=== PATIENT | female | born 1970 | race African-American/Black ===

== ENCOUNTER 2017-08-04 07:56 | Inpatient (IN) | payer MEDICAID ==
--- NOTE | 2017-08-04 09:00 | ER Document Report ---
ED General - General Mode of Arrival: Medic Information source: Patient TRAVEL OUTSIDE OF THE [place] IN LAST 30 DAYS: No <VIDYA WHIPPLE - Last Filed: 08/04/17 09:20> <FAWN AVERY - Last Filed: 08/04/17 16:09> - General Chief Complaint: Upper Abdominal Pain Stated Complaint: ABDOMINAL PAIN Time Seen by Provider: 08/04/17 08:51 Notes: 46 y.o female presents to the ED with abd pain of onset Thursday evening around 0700. She reports that she went to work at 7am and when she came home around 2pm she went to sleep and when she woke up she was in pain in her right sided abd and a pain in her legs which has now became a diffuse pain in her abd, more prominently in her bilateral lower abdomen. Pt admits to occasional episodes of nausea and vomiting since the onset of her abd pain. Pt reports last menstrual period July 13 and reports some pink vaginal discharge recently when wiping after using the restroom. Pt denies being but admits there is a chance of . Pt denies any BMs since onset of sx. Pt denies any PSHx, EMS reports pt hx of kidney stones. (VIDYA WHIPPLE) Patient reports her abdominal pain started Thursday evening 08/02/2017 about 7 PM. She had laid down for a nap about 2 PM that afternoon after getting home from work and the pain woke her up about 7 PM. The pain would come and go since then. Her last bowel movement was on Thursday prior to the onset of pain. (FAWN AVERY) - Related Data Allergies/Adverse Reactions: metronidazole [From Flagyl] Allergy (Verified 08/04/17 08:26) Metronidazole HCl [From Flagyl] Allergy (Verified 08/04/17 08:26) Past Medical History - General Information source: Patient - Social History Smoking Status: Current Every Day Smoker Cigarette use (# per day): Yes - 10 per day Chew tobacco use (# tins/day): No Smoking Education Provided: Yes Frequency of alcohol use: None Drug Abuse: None Occupation: [employer] Family History: Reviewed & Not Pertinent - Immunizations Hx Diphtheria, Pertussis, Tetanus Vaccination: Yes <VIDYA WHIPPLE - Last Filed: 08/04/17 09:20> Review of Systems - Review of Systems Constitutional: No symptoms reported EENT: No symptoms reported. denies: Eye discharge Cardiovascular: No symptoms reported Respiratory: No symptoms reported Gastrointestinal: See HPI, Abdominal pain, Nausea, Vomiting Genitourinary: No symptoms reported Female Genitourinary: See HPI, Vaginal discharge. denies: Musculoskeletal: See HPI, Other - pain in legs with the onset of abd pain Skin: No symptoms reported Hematologic/Lymphatic: No symptoms reported Neurological/Psychological: No symptoms reported -: Yes All other systems reviewed and negative <VIDYA WIHPPLE - Last Filed: 08/04/17 09:20> Physical Exam <VIDYA WHIPPLE - Last Filed: 08/04/17 09:20> <FAWN AVERY - Last Filed: 08/04/17 16:09> - Vital signs Vitals: Temp Pulse Resp BP Pulse Ox 97.7 F 70 18 165/101 H 100 08/04/17 08:01 08/04/17 08:01 08/04/17 08:01 08/04/17 08:01 08/04/17 08:01 - Notes Notes: Physical Exam: General: Alert, appears well. HEENT: Normocephalic. Atraumatic. PERRL. Extraocular movements intact. Oropharynx clear. Neck: Supple. Non-tender. Respiratory: No respiratory distress. Clear and equal breath sounds bilaterally. Cardiovascular: Regular rate and rhythm. Abdominal: Morbidly obese. Tender in RUQ and very tender in bilateral lower quadrants. Soft, no distension. Normal Bowel Sounds. Back: Non-tender. No deformity or step off. Extremities: Moves all four extremities. Upper extremities: Normal inspection. Normal ROM. Lower extremities: Normal inspection. No edema. Normal ROM. Neurological: Normal cognition. AAOx3. Normal speech. (VIDYA WHIPPLE) Course - Laboratory Result Diagrams: 08/04/17 10:10 08/04/17 10:10 - Diagnostic Test Radiology reviewed: Reports reviewed - Ultrasound shows gallstones. Trace pericholecystic fluid. No gallbladder wall thickening. - Consults Dr. Gann Time consulted: 14:50 Consulted provider: will come to ER <FAWN AVERY - Last Filed: 08/04/17 16:09> - Vital Signs Vital signs: Temp Pulse Resp BP Pulse Ox 98.5 F 62 16 164/95 H 100 08/04/17 12:31 08/04/17 12:31 08/04/17 12:31 08/04/17 12:31 08/04/17 12:31 - Laboratory Laboratory results interpreted by me: 08/04/17 08/04/17 08/04/17 08:30 10:10 10:10 WBC 23.9 H RDW 16.4 H Seg Neuts % (Manual) 91 H Lymphocytes % (Manual) 1 L Abs Neuts (Manual) 21.7 H Abs Lymphs (Manual) 0.2 L Abs Monocytes (Manual) 1.9 H Carbon Dioxide 31 H AST 43 H Total Protein 8.6 H Lipase 587.0 H Urine Protein 100 H Urine Glucose (UA) 50 H Urine Ketones 20 H Urine Bilirubin SMALL H Urine Urobilinogen 2.0 H Discharge <VIDYA WHIPPLE - Last Filed: 08/04/17 09:20> - Discharge Admitting Provider: Surgicalist Unit Admitted: Surgical Floor <FAWN AVERY - Last Filed: 08/04/17 16:09> - Discharge Clinical Impression: Gallstones, Pyuria Abdominal pain Qualifiers: Abdominal location: generalized Qualified Code(s): R10.84 - Generalized abdominal pain Leukocytosis Qualifiers: Leukocytosis type: unspecified Qualified Code(s): D72.829 - Elevated white blood cell count, unspecified Condition: Stable Disposition: ADMITTED INPATIENT Scribe Attestation: 08/04/17 10:52 I personally performed the services described in the documentation, reviewed and edited the documentation which was dictated to the scribe in my presence, and it accurately records my words and actions. (FAWN AVERY) Scribe Documentation - Scribe Written by Julieta:: Julieta Cervantes [id number] 08/04/17 acting as scribe for :: Irina <VIDYA WHIPPLE - Last Filed: 08/04/17 09:20>
[2017-08-04] MEDS ORDERED: NORMAL SALINE 1000 ML 1,000 ML IV ONE (09:20)
[2017-08-04] MEDS ORDERED: ONDANSETRON HCL INJ/PF 4 MG/2 ML SDV IV ONE (09:20)
[2017-08-04] MEDS ORDERED: FAMOTIDINE INJ/PF 20 MG/2 ML SDV IV ONE (09:20)
[2017-08-04 09:52] LABS: AMORPHOUS SEDIMENT,URINE 1+ /HPF; APPEARANCE,URINE TURBID; BILIRUBIN,URINE SMALL (NEGATIVE); GLUCOSE, URINE 50 mg/dL (NEGATIVE); KETONES,URINE 20 mg/dL (NEGATIVE); LEUKOCYTE ESTERASE,URINE NEGATIVE (NEGATIVE); NITRITE,URINE NEGATIVE (NEGATIVE); PROTEIN,URINE 100 mg/dL (NEGATIVE); URINE SPECIFIC GRAVITY 1.032
[2017-08-04 09:53] LABS: COLOR,URINE YELLOW
[2017-08-04 10:41] LABS: HEMATOCRIT 38.5 % (36.0-47.0); HEMOGLOBIN 12.8 g/dL (12.0-15.5); MEAN CORPUSCULAR HEMOGLOBIN 29.9 pg (27.0-33.4); MEAN CORPUSCULAR HGB CONC 33.2 g/dL (32.0-36.0); MEAN CORPUSCULAR VOLUME 90 fl (80-97); PLATELET COUNT 437 10^3/uL (150-450); RED BLOOD COUNT 4.27 10^6/uL (3.72-5.28); RED CELL DISTRIBUTION WIDTH 16.4 % (11.5-14.0); WHITE BLOOD COUNT 23.9 10^3/uL (4.0-10.5)
[2017-08-04 10:49] LABS: ALANINE AMINOTRANSFERASE 16 U/L (9-52); ALBUMIN 4.5 g/dL (3.5-5.0); ALKALINE PHOSPHATASE 67 U/L (38-126); ANION GAP 11 (5-19); ASPARTATE AMINO TRANSFERASE 43 U/L (14-36); BILIRUBIN,DIRECT 0.4 mg/dL (0.0-0.4); BILIRUBIN,TOTAL 0.8 mg/dL (0.2-1.3); BLOOD UREA NITROGEN 9 mg/dL (7-20); CARBON DIOXIDE 31 mmol/L (22-30); CHLORIDE 102 mmol/L (98-107); GLUCOSE 107 mg/dL (75-110); POTASSIUM 3.7 mmol/L (3.6-5.0); SODIUM 143.9 mmol/L (137-145); TOTAL PROTEIN 8.6 g/dL (6.3-8.2)
[2017-08-04] MEDS ORDERED: FENTANYL CITRATE INJ/PF 100 MCG/2 ML AMPUL IV ONE (10:52)
[2017-08-04 11:15] LABS: ABSOLUTE LYMPHOCYTES# (MANUAL) 0.2 10^3/uL (0.5-4.7); ABSOLUTE MONOCYTES # (MANUAL) 1.9 10^3/uL (0.1-1.4); ABSOLUTE NEUTROPHILS# (MANUAL) 21.7 10^3/uL (1.7-8.2); BASOPHILS % (MANUAL) 0 % (0-2); EOSINOPHILS % (MANUAL) 0 % (0-6); LYMPHOCYTES % (MANUAL) 1 % (13-45); MONOCYTES % (MANUAL) 8 % (3-13); SEGMENTED NEUTROPHILS % (MAN) 91 % (42-78); TOTAL CELLS COUNTED 100
[2017-08-04 11:16] LABS: ANISOCYTOSIS 1+; PLATELET COMMENT ADEQUATE; POIKILOCYTOSIS 1+; STOMATOCYTES 1+; TEAR DROP CELLS SLIGHT
[2017-08-04 11:43] LABS: CHLAM PCR NOT DETECTED (NOT DETECT); GON PCR NOT DETECTED (NOT DETECT)
--- NOTE | 2017-08-04 12:37 | RADIOLOGY REPORT (SQ) ---
EXAM DESCRIPTION: U/S ABDOMEN LIMITED W/O DOP COMPLETED DATE/TIME: 08/04/2017 12:02 pm REASON FOR STUDY: RUQ-for gastric pain with elevated lipase COMPARISON: CT abdomen and pelvis 01/25/2015. TECHNIQUE: Dynamic and static grayscale images acquired of the abdomen and recorded on PACS. Additio nal selected color Doppler and spectral images recorded. LIMITATIONS: None. FINDINGS: PANCREAS: No masses. Visualized pancreatic duct normal caliber. LIVER: No masses. Echotexture normal. LIVER VASCULATURE: Normal directional flow of the main portal vein and hepatic veins. GALLBLADDER: Gallstone(s). Trace pericholecystic fluid. No wall thickening. ULTRASOUND-DETECTED RIDER'S SIGN: Negative. INTRAHEPATIC DUCTS AND COMMON DUCT: CBD and intrahepatic ducts normal caliber. No filling defects. INFERIOR VENA CAVA: Normal flow. AORTA: No aneurysm. RIGHT KIDNEY: Normal size. Normal echogenicity. No solid or suspicious masses. No hydronephrosis. No calcifications. PERITONEAL AND RIGHT PLEURAL SPACE: No ascites or effusions. OTHER: Heterogenous mass in the lower abdomen/pelvis anterior to the distal abdominal aorta, incomple tely visualized. IMPRESSION: 1. GALLSTONES. TRACE PERICHOLECYSTIC FLUID. NO OTHER SIGNIFICANT FINDINGS IN THE UPPER ABDOMEN. 2. HETEROGENOUS MASS IN THE LOWER ABDOMEN/PELVIS, INCOMPLETELY VISUALIZED. THIS MAY BE AN ENLARGED F IBROID UTERUS. MAY CONSIDER FOLLOW-UP CT FOR MORE COMPLETE EVALUATION. TECHNICAL DOCUMENTATION: JOB ID: [id number] [employer]- All Rights Reserved Reading location - IP/workstation name: [email or web address]
[2017-08-04] MEDS ORDERED: PIPERACILLIN/TAZOBACTAM 4.5 GM VIAL IV ONE (13:49)
[2017-08-04] MEDS ORDERED: ONDANSETRON HCL INJ/PF 4 MG/2 ML SDV IV PRN (16:16)
[2017-08-04] MEDS ORDERED: RINGERS SOLUTION,LACTATED 1,000 ML IV ONE (17:06)
--- NOTE | 2017-08-04 18:53 | PDOC H&P ---
History of Present Illness Admission Date/PCP: 08/04/17 16:11 Patient complains of: Suprapubic, lower abdominal pain History of Present Illness: MARIANNA COPELAND is a 46 year old female with a 3 day history of suprapubic, right lower quadrant, and left lower quadrant abdominal pain. Her pain began on 08/02/2017. The pain was crampy in nature and extended from her suprapubic area into her right lower quadrant and left lower quadrant. She began experiencing nausea and vomiting. She has not had any significant food or drink in 3 days. She has never experienced anything like this before. Her pain intensified significantly, and she presented to the emergency department for evaluation. Patient denies any melena, hematochezia, diarrhea, constipation , chest pain, or shortness of breath. She does report nausea, vomiting, and pain. Nothing makes her pain better. Palpation makes her pain worse. Past Medical History Renal/ History Note: Uterine fibroids Past Surgical History Past Surgical History: Reports: None Social History Smoking Status: Current Every Day Smoker Frequency of Alcohol Use: Occasional - 2-3 times per month Hx Recreational Drug Use: No Family History Family History: Reviewed & Not Pertinent Parental Family History Reviewed: Yes Children Family History Reviewed: Yes Sibling(s) Family History Reviewed.: Yes Medication/Allergy Home Medications: No Home Medications 08/04/17 Allergies/Adverse Reactions: metronidazole [From Flagyl] Allergy (Verified 08/04/17 08:26) Metronidazole HCl [From Flagyl] Allergy (Verified 08/04/17 08:26) Review of Systems Constitutional: PRESENT: fatigue, weakness Eyes: ABSENT: visual disturbances Ears: ABSENT: hearing changes Nose, Mouth, and Throat: ABSENT: mouth pain, sore throat Cardiovascular: PRESENT: palpitations. ABSENT: edema Respiratory: ABSENT: cough, dyspnea, hemoptysis Gastrointestinal: PRESENT: abdominal pain, nausea, vomiting. ABSENT: hematemesis, hematochezia, melena Genitourinary: ABSENT: dysuria Musculoskeletal: ABSENT: back pain Integumentary: ABSENT: pruritus, rash Neurological: ABSENT: abnormal movements, abnormal speech, confusion, memory loss Psychiatric: ABSENT: anxiety, depression, hallucinations Endocrine: ABSENT: cold intolerance, heat intolerance Hematologic/Lymphatic: ABSENT: easy bleeding, easy bruising Physical Exam Vital Signs: Temp Pulse Resp BP Pulse Ox 98.3 F 64 16 172/91 H 98 08/04/17 17:49 08/04/17 17:49 08/04/17 17:49 08/04/17 17:49 08/04/17 17:49 General appearance: PRESENT: mild distress - Abdominal pain, obese Head exam: PRESENT: atraumatic, normocephalic Eye exam: PRESENT: EOMI, PERRLA. ABSENT: scleral icterus Mouth exam: PRESENT: moist, neck supple Neck exam: ABSENT: lymphadenopathy, meningismus, tenderness, thyromegaly, tracheal deviation Respiratory exam: PRESENT: clear to auscultation bill, unlabored. ABSENT: chest wall tenderness, rales, retraction, rhonchi, stridor, tachypnea Cardiovascular exam: PRESENT: RRR Pulses: PRESENT: normal radial pulses Vascular exam: PRESENT: normal capillary refill. ABSENT: pallor GI/Abdominal exam: PRESENT: soft, tenderness - Right lower quadrant, suprapubic , left lower quadrant. ABSENT: distended, firm, guarding, hernia, rebound Rectal exam: PRESENT: deferred Extremities exam: ABSENT: clubbing Musculoskeletal exam: PRESENT: normal inspection. ABSENT: deformity, dislocation Neurological exam: PRESENT: alert, awake, oriented to person, oriented to place , oriented to time, oriented to situation, CN II-XII grossly intact. ABSENT: motor sensory deficit Psychiatric exam: ABSENT: agitated, anxious, depressed Skin exam: ABSENT: cyanosis, erythema, jaundice, pallor Results Impressions: Abdomen Ultrasound 08/04/17 10:51 IMPRESSION: 1. GALLSTONES. TRACE PERICHOLECYSTIC FLUID. NO OTHER SIGNIFICANT FINDINGS IN THE UPPER ABDOMEN. 2. HETEROGENOUS MASS IN THE LOWER ABDOMEN/PELVIS, INCOMPLETELY VISUALIZED. THIS MAY BE AN ENLARGED FIBROID UTERUS. MAY CONSIDER FOLLOW-UP CT FOR MORE COMPLETE EVALUATION. Assessment & Plan - Diagnosis (1) Abdominal pain Qualifiers: Abdominal location: lower abdomen, unspecified Qualified Code(s): R10.30 - Lower abdominal pain, unspecified Is this a current diagnosis for this admission?: Yes - Inpatient Certification Based on my medical assessment, after consideration of the patient's comorbidities, presenting symptoms, or acuity I expect that the services needed warrant INPATIENT care.: Yes I certify that my determination is in accordance with my understanding of Medicare's requirements for reasonable and necessary INPATIENT services [42 CFR 412.3e].: Yes - Plan Summary Plan Summary: This is a 46-year-old female with lower abdominal pain. She has a significant leukocytosis, as well as semaj-cholecystic fluid on ultrasound, and an elevated lipase. On exam, the patient is tender in her right lower quadrant, left lower quadrant, and suprapubic area. Currently her symptoms are not completely explained by gallstone pancreatitis. I will admit the patient to the hospital, begin antibiotics for possible diverticulitis, and obtain a CT scan of the abdomen and pelvis. Currently the patient does not exhibit signs of peritonitis. Further recommendations will be determined after testing is obtained.
[2017-08-04] MEDS: HYDROMORPHONE HCL INJ/PF 2 MG/ML AMPULE IV PRN (20:54)
[2017-08-04 20:57] LABS: HEMATOCRIT 33.2 % (36.0-47.0); HEMOGLOBIN 10.9 g/dL (12.0-15.5); MEAN CORPUSCULAR HEMOGLOBIN 29.5 pg (27.0-33.4); MEAN CORPUSCULAR HGB CONC 32.9 g/dL (32.0-36.0); MEAN CORPUSCULAR VOLUME 90 fl (80-97); PLATELET COUNT 335 10^3/uL (150-450); RED CELL DISTRIBUTION WIDTH 16.4 % (11.5-14.0); WHITE BLOOD COUNT 20.8 10^3/uL (4.0-10.5)
[2017-08-04 21:13] LABS: ALANINE AMINOTRANSFERASE 19 U/L (9-52); ALBUMIN 3.7 g/dL (3.5-5.0); ALKALINE PHOSPHATASE 51 U/L (38-126); ANION GAP 10 (5-19); ASPARTATE AMINO TRANSFERASE 19 U/L (14-36); BILIRUBIN,DIRECT 0.3 mg/dL (0.0-0.4); BILIRUBIN,TOTAL 0.7 mg/dL (0.2-1.3); BLOOD UREA NITROGEN 8 mg/dL (7-20); CALCIUM 9.6 mg/dL (8.4-10.2); CARBON DIOXIDE 29 mmol/L (22-30); CHLORIDE 103 mmol/L (98-107); GLUCOSE 96 mg/dL (75-110); POTASSIUM 3.7 mmol/L (3.6-5.0); SODIUM 142.4 mmol/L (137-145); TOTAL PROTEIN 7.1 g/dL (6.3-8.2)
[2017-08-04 21:19] LABS: ABSOLUTE MONOCYTES # (MANUAL) 0.2 10^3/uL (0.1-1.4); ABSOLUTE NEUTROPHILS# (MANUAL) 19.3 10^3/uL (1.7-8.2); BASOPHILS % (MANUAL) 1 % (0-2); EOSINOPHILS % (MANUAL) 0 % (0-6); HYPOCHROMASIA 1+; LYMPHOCYTES % (MANUAL) 5 % (13-45); MONOCYTES % (MANUAL) 1 % (3-13); PLATELET COMMENT ADEQUATE; SEGMENTED NEUTROPHILS % (MAN) 93 % (42-78); TOTAL CELLS COUNTED 100; TOXIC GRANULATION SLIGHT
[2017-08-04] MEDS: PIPERACILLIN SODIUM/TAZOBACTAM 3.375 GM in NORMAL SALINE 100 ML IV SCH (23:45)
--- NOTE | 2017-08-05 01:09 | RADIOLOGY REPORT (SQ) ---
EXAM DESCRIPTION: CT abdomen pelvis with contrast CLINICAL HISTORY: 46 years Female lower abdominal pain and leukocytosis COMPARISON: 01/25/2015, ultrasound 08/04/2018 TECHNIQUE: Contiguous axial images obtained through the abdomen and pelvis following IV contrast. Reformatted images obtained. This exam was performed according to our department optimization program which includes automated exposure control, adjustment of the mA and/or kv according to patient size and/or use of iterative reconstruction technique. FINDINGS: There is a small lymph node along the superior aspect of the hemidiaphragm on the right which is larger than on previous studies, measuring 7 mm. There is fatty infiltration of the liver. The spleen and pancreas appear unremarkable. No adrenal masses. The kidneys appear unremarkable. No hydronephrosis. The gallbladder is visualized. No aneurysmal dilatation of the aorta. No bowel obstruction. The appendix is unremarkable. There is a small amount of fluid in the right lower quadrant the pelvis. There is a multilobulated exophytic mass in the central aspect of the pelvis. This may represent a pedunculated fibroid but the possibility of ovarian mass should be excluded. The left ovary appears unremarkable. IMPRESSION: Complex multi lobulated mass in the central pelvis slightly to the right of the midline measuring 11.5 x 9 cm x 14 cm vertically. Findings may reflect ovarian neoplasm such as cystadenoma or cystadenocarcinoma. Large pedunculated uterine fibroid is not excluded. Recommend correlation with MRI Small amount of fluid in the pelvis and right lower quadrant
[2017-08-05] MEDS: HYDROMORPHONE HCL INJ/PF 2 MG/ML AMPULE IV PRN ×4 (04:17→23:43)
[2017-08-05] MEDS: PIPERACILLIN SODIUM/TAZOBACTAM 3.375 GM in NORMAL SALINE 100 ML IV SCH ×4 (06:11→23:44)
[2017-08-05] MEDS: RINGERS SOLUTION,LACTATED 1,000 ML IV PRN ×2 (06:12→17:57)
[2017-08-05 06:56] LABS: ABSOLUTE BASOPHILS # (AUTO) 0.1 10^3/uL (0.0-0.2); ABSOLUTE LYMPHOCYTES (AUTO) 1.1 10^3/uL (0.5-4.7); ABSOLUTE MONOCYTES (AUTO) 1.4 10^3/uL (0.1-1.4); ABSOLUTE NEUT (AUTO) 14.7 10^3/uL (1.7-8.2); BASOPHILS % (AUTO) 0.7 % (0-2); EOSINOPHILS % (AUTO) 0.2 % (0-6); HEMATOCRIT 31.2 % (36.0-47.0); HEMOGLOBIN 10.4 g/dL (12.0-15.5); LYMPHOCYTES % (AUTO) 6.2 % (13-45); MEAN CORPUSCULAR HEMOGLOBIN 29.8 pg (27.0-33.4); MEAN CORPUSCULAR HGB CONC 33.3 g/dL (32.0-36.0); MEAN CORPUSCULAR VOLUME 89 fl (80-97); MONOCYTES % (AUTO) 8.1 % (3-13); PLATELET COUNT 300 10^3/uL (150-450); RED BLOOD COUNT 3.49 10^6/uL (3.72-5.28); RED CELL DISTRIBUTION WIDTH 16.2 % (11.5-14.0); SEGMENTED NEUTROPHILS % (AUTO) 84.8 % (42-78); TOTAL CELLS COUNTED % (AUTO) 100 %; WHITE BLOOD COUNT 17.4 10^3/uL (4.0-10.5)
[2017-08-05 07:14] LABS: ALANINE AMINOTRANSFERASE 17 U/L (9-52); ALBUMIN 3.3 g/dL (3.5-5.0); ALKALINE PHOSPHATASE 48 U/L (38-126); AMYLASE 37 U/L (30-110); ANION GAP 10 (5-19); ASPARTATE AMINO TRANSFERASE 15 U/L (14-36); BILIRUBIN,DIRECT 0.3 mg/dL (0.0-0.4); BILIRUBIN,TOTAL 0.6 mg/dL (0.2-1.3); BLOOD UREA NITROGEN 7 mg/dL (7-20); CALCIUM 9.2 mg/dL (8.4-10.2); CARBON DIOXIDE 28 mmol/L (22-30); CHLORIDE 104 mmol/L (98-107); GLUCOSE 84 mg/dL (75-110); LIPASE 45.3 U/L (23-300); POTASSIUM 3.6 mmol/L (3.6-5.0); SODIUM 141.7 mmol/L (137-145); TOTAL PROTEIN 6.4 g/dL (6.3-8.2)
--- NOTE | 2017-08-05 12:25 | CONSULTATION REPORT E ---
Consultation Report NAME: MARIANNA COPELAND : 1970 AGE: 46Y DATE: 08/05/2017 ROOM: 208 A TO: Rosie SAUNDERS M.D. FROM: FAWN AVERY M.D. Requesting Physician HISTORY OF PRESENT ILLNESS: This patient is a 46-year-old 1, para 1 with last menstrual period approximately 2 months ago. The patient gives a history of having irregular periods for the last couple of months. Prior to that time, she reported them as being normal. The patient denies any other problems, was admitted with lower abdominal pain. She was noted to have a pelvic mass on ultrasound and it was questionable whether it was uterine or ovarian in origin. The patient denies any other problems. PHYSICAL EXAMINATION: ABDOMEN: Her abdomen is soft. PELVIC: The bimanual exam shows her cervix to be extremely anterior. A Pap smear was done on her bimanual exam. This appears to be a large fibroid filling the cul-de-sac and extending up into the abdomen. No apparent adnexal masses could be palpated secondary to the size of the uterus. IMPRESSION: The patient's large uterine mass, most consistent with uterine fibroids. RECOMMENDATIONS: The patient was notified of the findings and also told that further diagnostic tests would be warranted to delineate between ovary and uterus. If it is a uterine mass and if she desires, then surgical intervention could be entertained. If it is an ovarian mass, then we may need to refer her to [facility] for further evaluation. DICTATING PHYSICIAN: Rosie SAUNDERS M.D. [id number] PHY#: [id number] ID: [id number] JOB#: [id number] ACCT: [id number] cc:Rosie SAUNDERS M.D. >
--- NOTE | 2017-08-05 16:40 | PDOC PROGRESS REPORT ---
Subjective Progress Note for:: 08/05/17 Subjective:: pelvic pains Reason For Visit: ABDOMINAL PAIN,LEUKOCYTOSIS Physical Exam Vital Signs: Temp Pulse Resp BP Pulse Ox 98.1 F 67 16 117/55 L 99 08/05/17 15:43 08/05/17 15:43 08/05/17 15:43 08/05/17 15:43 08/05/17 15:43 Intake & Output 08/04/17 08/05/17 08/06/17 06:59 06:59 06:59 Intake Total 1620 250 Output Total 750 Balance 870 250 Weight 108.862 kg Exam: Abd drawing frame tender Right Lower quadrant and supra pubic areas Results Laboratory Results: 08/05/17 06:19 08/05/17 06:19 08/04/17 08/04/17 08/05/17 20:40 20:40 06:19 WBC 20.8 H 17.4 H RBC 3.70 L 3.49 L Hgb 10.9 L 10.4 L Hct 33.2 L 31.2 L MCV 90 89 MCH 29.5 29.8 MCHC 32.9 33.3 RDW 16.4 H 16.2 H Plt Count 335 300 Seg Neutrophils % Not Reportable 84.8 H Lymphocytes % Not Reportable 6.2 L Monocytes % Not Reportable 8.1 Eosinophils % Not Reportable 0.2 Basophils % Not Reportable 0.7 Absolute Neutrophils Not Reportable 14.7 H Absolute Lymphocytes Not Reportable 1.1 Absolute Monocytes Not Reportable 1.4 Absolute Eosinophils Not Reportable 0.0 Absolute Basophils Not Reportable 0.1 Sodium 142.4 Potassium 3.7 Chloride 103 Carbon Dioxide 29 Anion Gap 10 BUN 8 Creatinine 0.72 Est GFR ( Amer) > 60 Est GFR (Non-Af Amer) > 60 Glucose 96 Calcium 9.6 Total Bilirubin 0.7 AST 19 ALT 19 Alkaline Phosphatase 51 Total Protein 7.1 Albumin 3.7 Amylase Lipase 08/05/17 06:19 WBC RBC Hgb Hct MCV MCH MCHC RDW Plt Count Seg Neutrophils % Lymphocytes % Monocytes % Eosinophils % Basophils % Absolute Neutrophils Absolute Lymphocytes Absolute Monocytes Absolute Eosinophils Absolute Basophils Sodium 141.7 Potassium 3.6 Chloride 104 Carbon Dioxide 28 Anion Gap 10 BUN 7 Creatinine 0.68 Est GFR ( Amer) > 60 Est GFR (Non-Af Amer) > 60 Glucose 84 Calcium 9.2 Total Bilirubin 0.6 AST 15 ALT 17 Alkaline Phosphatase 48 Total Protein 6.4 Albumin 3.3 L Amylase 37 Lipase 45.3 Impressions: Abdomen Ultrasound 08/04/17 10:51 IMPRESSION: 1. GALLSTONES. TRACE PERICHOLECYSTIC FLUID. NO OTHER SIGNIFICANT FINDINGS IN THE UPPER ABDOMEN. 2. HETEROGENOUS MASS IN THE LOWER ABDOMEN/PELVIS, INCOMPLETELY VISUALIZED. THIS MAY BE AN ENLARGED FIBROID UTERUS. MAY CONSIDER FOLLOW-UP CT FOR MORE COMPLETE EVALUATION. Abdomen/Pelvis CT 08/04/17 20:26 IMPRESSION: Complex multi lobulated mass in the central pelvis slightly to the right of the midline measuring 11.5 x 9 cm x 14 cm vertically. Findings may reflect ovarian neoplasm such as cystadenoma or cystadenocarcinoma. Large pedunculated uterine fibroid is not excluded. Recommend correlation with MRI Small amount of fluid in the pelvis and right lower quadrant Assessment & Plan - Diagnosis (1) Pelvic mass Is this a current diagnosis for this admission?: Yes - Time Time Spent with patient: 15-24 minutes - Plan Summary Plan Summary: Seen by ENLISTED ADVISOR.Dr Gutierrez. D/W ENLISTED ADVISOR. He feels it is a uterine fibroid possibly right ovarian. Patient can be discharged [facility]. Will continue antibiotics and repeat CBC in am. Start clears advance as tolerated.
[2017-08-06] MEDS: PIPERACILLIN SODIUM/TAZOBACTAM 3.375 GM in NORMAL SALINE 100 ML IV SCH (05:35)
[2017-08-06 06:25] LABS: ABSOLUTE BASOPHILS # (AUTO) 0.1 10^3/uL (0.0-0.2); ABSOLUTE EOSINOPHILS # (AUTO) 0.1 10^3/uL (0.0-0.6); ABSOLUTE MONOCYTES (AUTO) 0.9 10^3/uL (0.1-1.4); ABSOLUTE NEUT (AUTO) 8.9 10^3/uL (1.7-8.2); BASOPHILS % (AUTO) 0.5 % (0-2); EOSINOPHILS % (AUTO) 0.8 % (0-6); HEMOGLOBIN 10.2 g/dL (12.0-15.5); MEAN CORPUSCULAR HEMOGLOBIN 30.6 pg (27.0-33.4); MEAN CORPUSCULAR VOLUME 90 fl (80-97); MONOCYTES % (AUTO) 7.9 % (3-13); PLATELET COUNT 292 10^3/uL (150-450); RED BLOOD COUNT 3.33 10^6/uL (3.72-5.28); RED CELL DISTRIBUTION WIDTH 16.2 % (11.5-14.0); SEGMENTED NEUTROPHILS % (AUTO) 81.8 % (42-78); TOTAL CELLS COUNTED % (AUTO) 100 %; WHITE BLOOD COUNT 10.8 10^3/uL (4.0-10.5)
[2017-08-06 12:17] VITALS: BP 133/58
--- NOTE | 2017-08-06 13:03 | DISCHARGE SUMMARY E ---
Discharge Summary NAME: MARIANNA COPELAND : 1970 AGE: 46Y ADMITTED: 08/04/2017 DISCHARGED: 08/06/2017 FINAL DIAGNOSES: 1. Pelvic mass. 2. Infected pelvic mass. HOSPITAL COURSE: This is a 46-year-old female who complained of right lower quadrant and pelvic pains for the past 2 days prior to admission. She had a CAT scan and ultrasound of the abdomen and pelvis and noted to have an ovarian versus uterine mass. A DR[facility] ENFORCEMENT ADMINISTRATION AGENT consultation was then obtained with Dr. Gutierrez who feels that the patient can [facility] care [facility] at the [facility]. The patient continued on IV antibiotics and on 08/06/2017 her white count was down to normal and feeling a lot better though still quite tender in the pelvic area. END OF DICTATION DICTATING PHYSICIAN: MINISTERIO RAIN M.D. [id number] PHY#: [id number] ID: [id number] JOB#: [id number] ACCT: [id number] cc:MINISTERIO RAIN M.D., MARSHALL B. M.D. >
== END 2017-08-06 13:13 | disposition home or self-care (01) | DRG 392 ==
LOC: ER 07:56 → EH 16:11 → 2N 19:30
PROVIDERS: ADMIT Surgery; ATTEND Surgery
DX: R19.03 Right lower quadrant abdominal swelling, mass and lump (principal); Z68.41 Body mass index [BMI] 40.0-44.9, adult; K80.80 Other cholelithiasis without obstruction; F17.210 Nicotine dependence, cigarettes, uncomplicated; E66.01 Morbid (severe) obesity due to excess calories; Z88.3 Allergy status to other anti-infective agents
CPT/HCPCS: 36415; 74177; 76705; 80053; 81001; 81025; 82150; 83690; 85025; 87086; 87491; 87591; 88142; 96361; 96365; 96375; 99285; J1170; J2405; J2543; J3010; J7030; J7120; S0028

== ENCOUNTER → 2017-08-06 | Outpatient (CLI) | payer MEDICAID | LOC: OD 16:09 | PROVIDERS: ATTEND Student in an Organized Health Care Education/Training Program | DX: C56.9 Malignant neoplasm of unspecified ovary (principal) | CPT/HCPCS: 36415; 82378; 86301; 86304 ==

== ENCOUNTER 2018-05-14 10:29 | Emergency (ER) | payer SELFPAY ==
[2018-05-14] MEDS ORDERED: HYDROCODONE/ACETAMINOPHEN 5-325 MG TABLET PO ONE (10:52)
[2018-05-14] MEDS ORDERED: IBUPROFEN 800 MG TABLET PO ONE (10:52)
--- NOTE | 2018-05-14 11:50 | RADIOLOGY REPORT (SQ) ---
EXAM DESCRIPTION: OS CALCIS/HEEL RIGHT COMPLETED DATE/TIME: 05/14/2018 11:34 am REASON FOR STUDY: r foot pain COMPARISON: Right foot three views same date NUMBER OF VIEWS: Two views. TECHNIQUE: Plantar and lateral images acquired of the right calcaneous. LIMITATIONS: None. FINDINGS: MINERALIZATION: Normal. BONES: No acute fracture or dislocation. No worrisome bone lesions. JOINTS: No effusions. SOFT TISSUES: No soft tissue swelling. No foreign body. OTHER: No other significant finding. IMPRESSION: NEGATIVE STUDY OF THE RIGHT CALCANEOUS. NO RADIOGRAPHIC EVIDENCE OF ACUTE INJURY. TECHNICAL DOCUMENTATION: JOB ID: [id number] [employer]- All Rights Reserved Reading location - IP/workstation name: [email or web address]
--- NOTE | 2018-05-14 11:51 | RADIOLOGY REPORT (SQ) ---
EXAM DESCRIPTION: FOOT RIGHT COMPLETE COMPLETED DATE/TIME: 05/14/2018 11:34 am REASON FOR STUDY: r foot pain COMPARISON: Os calcis two views same date NUMBER OF VIEWS: Three views. TECHNIQUE: AP, lateral and oblique radiographic images acquired of the right foot. LIMITATIONS: None. FINDINGS: MINERALIZATION: Normal. BONES: No acute fracture or dislocation. No worrisome bone lesions. JOINTS: No effusions. SOFT TISSUES: Small calcification/ossification at the base of the right 5th metatarsal, could represe nt peroneal tendon calcification. OTHER: No other significant finding. IMPRESSION: Question calcification along the distal peroneal tendons at the base 5th metatarsal. Ot herwise unremarkable study TECHNICAL DOCUMENTATION: JOB ID: [id number] [employer]- All Rights Reserved Reading location - IP/workstation name: [email or web address]
--- NOTE | 2018-05-14 12:02 | ER Document Report ---
HPI - HPI Patient complains to provider of: r foot pain Time Seen by Provider: 05/14/18 10:46 Onset: Other - several months Quality of pain: Achy Pain Level: 2 Context: Patient presents complaining of right foot pain for several months. Patient denies any injury. Patient denies any fever. She denies any history of gout. Associated Symptoms: Other - Right foot pain. denies: Fever Exacerbated by: Movement, Walking Relieved by: Denies Similar symptoms previously: No Recently seen / treated by doctor: No - ROS ROS below otherwise negative: Yes Systems Reviewed and Negative: Yes All other systems reviewed and negative - CONSTITUTIONAL Constitutional: DENIES: Fever, Chills - NEURO Neurology: DENIES: Weakness - REPRODUCTIVE Reproductive: DENIES: : - MUSCULOSKELETAL Musculoskeletal: REPORTS: Extremity pain - right foot - DERM Skin Color: Normal Skin Problems: None Past Medical History - General Information source: Patient - Social History Smoking Status: Current Every Day Smoker Chew tobacco use (# tins/day): Yes Smoking Education Provided: Yes Frequency of alcohol use: None Drug Abuse: None 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 IN LAST 30 DAYS: No - HEENT HEENT: Atraumatic - NECK Neck: Normal Inspection - RESPIRATORY Respiratory: Breath Sounds Normal, No Respiratory Distress - CARDIOVASCULAR Cardiovascular: Regular Rate, Regular Rhythm - BACK Back: Normal Inspection - MUSCULOSKELETAL/EXTREMETIES Musculoskeletal/Extremeties: MAEW, FROM, Tender - Patient with tenderness to medial and lateral aspect of right calcaneus and proximal midfoot area, No Edema - Normal skin color and temperature overlying joint, no abnormal skin lesions. - NEURO Level of Consciousness: Awake, Alert, Appropriate Motor/Sensory: No Motor Deficit, No Sensory Deficit - DERM Integumentary: Warm, Dry Course - Re-evaluation Re-evalutation: 05/14/18 11:58 Patient with tendon calcification noted on x-ray, no acute fracture. Will encourage outpatient follow-up with orthopedics for further evaluation. No concern for septic arthritis or gout at this time. - Vital Signs Vital signs: Temp Pulse Resp BP Pulse Ox 98.1 F 66 18 154/93 H 100 05/14/18 10:37 05/14/18 10:37 05/14/18 10:37 05/14/18 10:37 05/14/18 10:37 - Diagnostic Test Radiology reviewed: Image reviewed, Reports reviewed Procedures - Immobilization Right Ankle Pre-Proc Neuro Vasc Exam: Normal Immobilizer type: René wrap, Post-op shoe Performed by: PCT Post-Proc Neuro Vasc Exam: Normal Alignment checked and good: Yes Discharge - Discharge Clinical Impression: Right foot pain, Tendonitis Condition: Stable Disposition: HOME, SELF-CARE Instructions: René Wrap ([facility]), Post-Op Shoe ([facility]), Tendonitis ([facility]) Additional Instructions: Return immediately for any new or worsening symptoms Followup with your primary care provider, call tomorrow to make a followup appointment Follow-up with orthopedics for further evaluation, call today for an appointment Prescriptions: Naproxen [Naprosyn 250 Nmg Tablet] 1 tab PO BID #14 tablet Forms: Smoking Cessation Education, Return to Work Referrals: GIOVANNA MERINO MD [ACTIVE STAFF] - Follow up as needed [facility] [Provider Group] - Follow up in 3-5 days
[2018-05-14 12:50] VITALS: BP 148/89
== END 2018-05-14 12:50 | disposition home or self-care (01) ==
LOC: ER 10:29
DX: M79.671 Pain in right foot (principal); M77.9 Enthesopathy, unspecified; F17.200 Nicotine dependence, unspecified, uncomplicated
CPT/HCPCS: 99283

== ENCOUNTER 2018-09-21 18:48 | Emergency (ER) | payer SELFPAY ==
[2018-09-21 18:56] VITALS: BP 158/98
[2018-09-21] MEDS ORDERED: IBUPROFEN 800 MG TABLET PO ONE (19:19)
--- NOTE | 2018-09-21 19:25 | ER Document Report ---
HPI - HPI Patient complains to provider of: r hand pain Time Seen by Provider: 09/21/18 19:03 Onset: Other - 1 month, worse today Onset/Duration: Worse Quality of pain: Achy Pain Level: 5 Context: Patient started a new job a month ago since then she has had intermittent right hand pain. Patient denies any injury or trauma to the hand. Patient denies any fever or history of gout. Patient states certain movements exacerbate the pain. Patient is right-hand dominant. Patient states pain worsened today which prompted her visit. Associated Symptoms: Other - r hand pain. denies: Fever Exacerbated by: Movement Relieved by: Remaining still Similar symptoms previously: No Recently seen / treated by doctor: No - ROS ROS below otherwise negative: Yes Systems Reviewed and Negative: Yes All other systems reviewed and negative - CONSTITUTIONAL Constitutional: DENIES: Fever - REPRODUCTIVE Reproductive: DENIES: : - MUSCULOSKELETAL Musculoskeletal: REPORTS: Extremity pain - right hand - DERM Skin Color: Normal Skin Problems: None Past Medical History - General Information source: Patient - Social History Smoking Status: Current Every Day Smoker Smoking Education Provided: Yes Frequency of alcohol use: None Drug Abuse: None 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 Family History: Reviewed & Not Pertinent Patient has suicidal ideation: No Patient has homicidal ideation: No - Medical History Medical History: Negative - Past Medical History Cardiac Medical History: Denies: Hx Congestive Heart Failure, Hx Heart Attack, Hx Hypertension Musculoskeletal Medical History: Denies Hx Arthritis, Denies Hx Gout Past Surgical History: Reports: Hx Orthopedic Surgery - ganglion cyst removal - Immunizations Hx Diphtheria, Pertussis, Tetanus Vaccination: Yes Vertical Provider Document - CONSTITUTIONAL Agree With Documented VS: Yes Exam Limitations: No Limitations General Appearance: WD/WN, No Apparent Distress - INFECTION CONTROL TRAVEL OUTSIDE OF THE [place] IN LAST 30 DAYS: No - HEENT HEENT: Atraumatic - NECK Neck: Normal Inspection - RESPIRATORY Respiratory: No Respiratory Distress - CARDIOVASCULAR Pulses: Normal: Radial - MUSCULOSKELETAL/EXTREMETIES Musculoskeletal/Extremeties: MAEW, FROM, Tender - R hand tenderness over r thumb and r 1,2nd metacarpals, no obvious edema. Patient with normal skin color and temperature overlying hand., No Edema. negative: Eccymosis Notes: Positive Phalen sign, negative Tinel. No median ulnar or radial nerve deficit - NEURO Level of Consciousness: Awake, Alert, Appropriate Motor/Sensory: No Motor Deficit, No Sensory Deficit - DERM Integumentary: Warm, Dry, No Rash Course - Vital Signs Vital signs: Temp Pulse Resp BP Pulse Ox 97.9 F 70 16 158/98 H 99 09/21/18 18:53 09/21/18 18:53 09/21/18 18:53 09/21/18 18:53 09/21/18 18:53 Procedures - Immobilization Right Thumb Pre-Proc Neuro Vasc Exam: Normal Immobilizer type: Thumb spica Performed by: PCT Post-Proc Neuro Vasc Exam: Normal Alignment checked and good: Yes Discharge - Discharge Clinical Impression: Tendonitis, Overuse injury Condition: Stable Disposition: HOME, SELF-CARE Instructions: Tendonitis ([facility]), Overuse Syndrome ([facility]), Temporary Splint ([facility]) Additional Instructions: Return immediately for any new or worsening symptoms Followup with your primary care provider, call tomorrow to make a followup appointment Wear splint for the next 4 days and then remove. If still having pain follow-up with orthopedics for further evaluation. Prescriptions: Naproxen [Naprosyn 250 Nmg Tablet] 1 tab PO BID #14 tablet Forms: Smoking Cessation Education, Return to Work Referrals: RADHA DELCID DO [ACTIVE STAFF] - Follow up as needed
== END 2018-09-21 19:32 | disposition home or self-care (01) ==
LOC: ER 18:48
DX: M77.9 Enthesopathy, unspecified (principal); T14.8XXA Other injury of unspecified body region, initial encounter; M79.641 Pain in right hand; X58.XXXA Exposure to other specified factors, initial encounter; F17.200 Nicotine dependence, unspecified, uncomplicated
CPT/HCPCS: 99283

== ENCOUNTER 2018-12-07 09:35 | Emergency (ER) | payer BC ==
--- NOTE | 2018-12-07 11:08 | ER Document Report ---
HPI - HPI Patient complains to provider of: right foot pain Time Seen by Provider: 12/07/18 10:50 Onset: Other - 2 weeks Quality of pain: Achy Context: 48-year-old female presents emergency department with complaints of right foot pain. Reports she works at the [email or web address] works long hours and feels like every time she walks for the past 2 weeks feels like her bones are cracking. Denies trauma. Denies fever vomiting diarrhea. 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 Reports she was here couple months ago and was told it was tendinitis and a bone spur. She has not taken anything for the pain. Associated Symptoms: None Exacerbated by: Walking Relieved by: Denies Similar symptoms previously: Yes Recently seen / treated by doctor: No - REPRODUCTIVE Reproductive: DENIES: : Past Medical History - General Information source: Patient Last Menstrual Period: Irregular - Social History Smoking Status: Current Every Day Smoker Cigarette use (# per day): Yes Frequency of alcohol use: None Drug Abuse: None Occupation: [email or web address] Family History: Reviewed & Not Pertinent Patient has suicidal ideation: No Patient has homicidal ideation: No - Past Medical History Cardiac Medical History: Denies: Hx Congestive Heart Failure, Hx Heart Attack, Hx Hypertension Pulmonary Medical History: Denies: Hx Asthma, Hx Bronchitis, Hx COPD, Hx Pneumonia, Hx Tuberculosis Neurological Medical History: Denies: Hx Seizures, Hx Parkinson's Disease Renal/ Medical History: Reports: Other - Fibroids. Denies: Hx End Stage Renal Disease, Hx Kidney Stones, Hx Peritoneal Dialysis GI Medical History: Denies: Hx Gastroesophageal Reflux Disease, Hx Ulcer Musculoskeletal Medical History: Denies Hx Arthritis, Denies Hx Gout Psychiatric Medical History: Denies: Hx Bipolar Disorder, Hx Depression, Hx Schizophrenia Past Surgical History: Reports: Hx Orthopedic Surgery - ganglion cyst removal - Immunizations Hx Diphtheria, Pertussis, Tetanus Vaccination: Yes Vertical Provider Document - CONSTITUTIONAL Agree With Documented VS: Yes Exam Limitations: No Limitations General Appearance: WD/WN, No Apparent Distress - INFECTION CONTROL TRAVEL OUTSIDE OF THE [place] IN LAST 30 DAYS: No - HEENT HEENT: Atraumatic, Normocephalic - NECK Neck: Normal Inspection, Supple. negative: Lymphadenopathy-Left, Lymphadenopathy-Right - RESPIRATORY Respiratory: Breath Sounds Normal, No Respiratory Distress - CARDIOVASCULAR Cardiovascular: Regular Rate - MUSCULOSKELETAL/EXTREMETIES Musculoskeletal/Extremeties: MAEW, FROM, Tender - Complains of right foot dorsal tender to palpate, no obvious deformity good pedal pulse good cap refill no erythema no swelling no warmth - NEURO Level of Consciousness: Awake, Alert, Appropriate Motor/Sensory: No Motor Deficit - DERM Integumentary: Warm, Dry Adult Front & Back Diagram: 1 - Patient reports pain Course - Re-evaluation Re-evalutation: 12/07/18 11:06 48-year-old female with complaints of dorsal foot pain for the past 2 weeks. Also was evaluated couple months ago for the same pain. Denies trauma. Reports feels like her bones are cracking when she walks. Will evaluate with x-ray. Patient was instructed to take Tylenol Motrin as indicated for pain. 12/07/18 11:59 Foot X-Ray 12/07/18 11:03 IMPRESSION: No acute osseous abnormality of the right foot. Stable ill-defined calcific/ossific densities at the base of the 5th metatarsal that as stated on the prior radiograph could involve the insertion of the peroneus brevis tendon. 12/07/18 12:14 Patient instructed on her foot x-ray. Patient encouraged to follow-up with her prior amalgamator for evaluation and plan of care. Dictation of this chart was performed using voice recognition software; therefore, there may be some unintended grammatical errors. - Vital Signs Vital signs: Temp Pulse Resp BP Pulse Ox 97.3 F 66 16 156/111 H 100 12/07/18 09:41 12/07/18 09:41 12/07/18 09:41 12/07/18 09:41 12/07/18 09:41 - Diagnostic Test Radiology reviewed: Image reviewed, Reports reviewed Discharge - Discharge Clinical Impression: Right foot pain Condition: Stable Disposition: HOME, SELF-CARE Instructions: Use of Rpxd-Oot-Kkszwth Ibuprofen ([facility]) Additional Instructions: *You have been evaluated for right foot pain The xray shows stable ill-defined calcific/ossific densities at the base of the 5th metatarsal that could involve the insertion of the tendon. *Wear good supporting shoes Take Tylenol or Motrin as indicated for pain *Follow up with a primary care provider or a amalgamator within 1 week for recheck *Return to ED for worsening condition, changes, needs Monitor your blood pressure. Your blood pressure was elevated today. This may be because you were anxious, in pain or because you need medication. It is important to follow up with your primary care provider for full evaluation. Forms: Elevated Blood Pressure, Return to Work
--- NOTE | 2018-12-07 11:36 | RADIOLOGY REPORT (SQ) ---
EXAM DESCRIPTION: FOOT RIGHT COMPLETE COMPLETED DATE/TIME: 12/07/2018 11:24 am REASON FOR STUDY: pain COMPARISON: AP, oblique, and lateral views of the right foot from 05/14/2018. NUMBER OF VIEWS: Three views. TECHNIQUE: AP, lateral and oblique radiographic images acquired of the right foot. LIMITATIONS: None. FINDINGS: MINERALIZATION: Normal. BONES: No acute fracture or dislocation. No osseous lesions. The tarsometatarsal alignment is prese rved. JOINTS: No effusions. SOFT TISSUES: No soft tissue swelling or radiopaque foreign body. OTHER: The ill-defined calcific/ossific densities at the base of the 5th metatarsal are unchanged. IMPRESSION: No acute osseous abnormality of the right foot. Stable ill-defined calcific/ossific den sities at the base of the 5th metatarsal that as stated on the prior radiograph could involve the ins ertion of the peroneus brevis tendon. TECHNICAL DOCUMENTATION: JOB ID: [id number] [employer]- All Rights Reserved Reading location - IP/workstation name: [email or web address]
[2018-12-07 12:15] VITALS: BP 150/89
== END 2018-12-07 12:15 | disposition home or self-care (01) ==
LOC: ER 09:35
DX: M79.671 Pain in right foot (principal); F17.210 Nicotine dependence, cigarettes, uncomplicated

== ENCOUNTER 2019-01-24 15:10 | Emergency (ER) | payer SELFPAY ==
--- NOTE | 2019-01-24 15:45 | ER Document Report ---
ED Medical Screen (RME) - General Chief Complaint: Abdominal Pain Stated Complaint: LOWER ABDOMINAL PAIN Time Seen by Provider: 01/24/19 15:40 Mode of Arrival: Ambulatory Information source: Patient Notes: This 48-year-old female with history of fibroids presents emergency department with complaints of pelvic discomfort feels like her insides are going to fall out. Reports she started hurting this past Thursday to the right side. Denies fever vomiting diarrhea. Denies pain with void. Denies trauma. Reports she did have a heavy menses recently but now she is only having blood when she wipes. 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 I have greeted and performed a rapid initial assessment of this patient. A comprehensive ED assessment and evaluation of the patient, analysis of test results and completion of the medical decision making process will be conducted by additional ED providers. Dictation of this chart was performed using voice recognition software; therefore, there may be some unintended grammatical errors. TRAVEL OUTSIDE OF THE [place] IN LAST 30 DAYS: No - Related Data Allergies/Adverse Reactions: No Known Allergies Allergy (Verified 09/21/18 18:50) Past Medical History - Social History Frequency of alcohol use: None Drug Abuse: None - Past Medical History Cardiac Medical History: Denies: Hx Congestive Heart Failure, Hx Heart Attack, Hx Hypertension Pulmonary Medical History: Denies: Hx Asthma, Hx Bronchitis, Hx COPD, Hx Pneumonia, Hx Tuberculosis Neurological Medical History: Denies: Hx Seizures, Hx Parkinson's Disease Renal/ Medical History: Denies: Hx End Stage Renal Disease, Hx Kidney Stones, Hx Peritoneal Dialysis GI Medical History: Denies: Hx Gastroesophageal Reflux Disease, Hx Ulcer Musculoskeltal Medical History: Denies Hx Arthritis, Denies Hx Gout Psychiatric Medical History: Denies: Hx Bipolar Disorder, Hx Depression, Hx Schizophrenia Past Surgical History: Reports: Hx Orthopedic Surgery - ganglion cyst removal - Immunizations Hx Diphtheria, Pertussis, Tetanus Vaccination: Yes Physical Exam - Vital signs Vitals: Temp Pulse BP Pulse Ox 97.7 F 65 153/93 H 100 01/24/19 15:28 01/24/19 15:28 01/24/19 15:28 01/24/19 15:28 Course - Vital Signs Vital signs: Temp Pulse Resp BP Pulse Ox 97.7 F 65 153/93 H 100 01/24/19 15:28 01/24/19 15:28 01/24/19 15:28 01/24/19 15:28
[2019-01-24 16:22] LABS: ABSOLUTE BASOPHILS # (AUTO) 0.1 10^3/uL (0.0-0.2); ABSOLUTE EOSINOPHILS # (AUTO) 0.2 10^3/uL (0.0-0.6); ABSOLUTE MONOCYTES (AUTO) 0.5 10^3/uL (0.1-1.4); ABSOLUTE NEUT (AUTO) 6.2 10^3/uL (1.7-8.2); EOSINOPHILS % (AUTO) 2.1 % (0-6); HEMATOCRIT 39.6 % (36.0-47.0); HEMOGLOBIN 13.4 g/dL (12.0-15.5); LYMPHOCYTES % (AUTO) 22.7 % (13-45); MEAN CORPUSCULAR HEMOGLOBIN 31.5 pg (27.0-33.4); MEAN CORPUSCULAR HGB CONC 33.8 g/dL (32.0-36.0); MEAN CORPUSCULAR VOLUME 93 fl (80-97); MONOCYTES % (AUTO) 5.5 % (3-13); PLATELET COUNT 462 10^3/uL (150-450); RED BLOOD COUNT 4.24 10^6/uL (3.72-5.28); RED CELL DISTRIBUTION WIDTH 15.7 % (11.5-14.0); SEGMENTED NEUTROPHILS % (AUTO) 68.7 % (42-78); TOTAL CELLS COUNTED % (AUTO) 100 %; WHITE BLOOD COUNT 8.9 10^3/uL (4.0-10.5)
[2019-01-24 16:26] LABS: APPEARANCE,URINE SLIGHTLY-CLOUDY; BILIRUBIN,URINE NEGATIVE (NEGATIVE); COLOR,URINE YELLOW; GLUCOSE, URINE NEGATIVE (NEGATIVE); KETONES,URINE NEGATIVE (NEGATIVE); LEUKOCYTE ESTERASE,URINE NEGATIVE (NEGATIVE); NITRITE,URINE NEGATIVE (NEGATIVE); PROTEIN,URINE NEGATIVE (NEGATIVE); URINE SPECIFIC GRAVITY 1.021; UROBILINOGEN,URINE NEGATIVE mg/dL (<2.0)
[2019-01-24 16:39] LABS: ALBUMIN 3.8 g/dL (3.5-5.0); ALKALINE PHOSPHATASE 54 U/L (38-126); ANION GAP 6 (5-19); ASPARTATE AMINO TRANSFERASE 19 U/L (14-36); BILIRUBIN,TOTAL 0.2 mg/dL (0.2-1.3); BLOOD UREA NITROGEN 7 mg/dL (7-20); CALCIUM 9.6 mg/dL (8.4-10.2); CARBON DIOXIDE 29 mmol/L (22-30); CHLORIDE 108 mmol/L (98-107); GLUCOSE 73 mg/dL (75-110); POTASSIUM 4.1 mmol/L (3.6-5.0); TOTAL PROTEIN 7.4 g/dL (6.3-8.2)
[2019-01-24] MEDS ORDERED: CEFTRIAXONE INJ 250 MG VIAL IM ONE (17:43)
[2019-01-24] MEDS ORDERED: LIDOCAINE 1% INJ-PF (10 MG/ML) 30 ML SDV INJ ONE (17:43)
[2019-01-24] MEDS ORDERED: AZITHROMYCIN 250 MG TABLET PO ONE (17:43)
--- NOTE | 2019-01-24 17:48 | ER Document Report ---
ED General - General Chief Complaint: Abdominal Pain Stated Complaint: LOWER ABDOMINAL PAIN Time Seen by Provider: 01/24/19 15:40 Primary Care Provider: [facility] [Provider Group] - [facility] as [facility]AL [facility] - Follow up as needed Mode of Arrival: Ambulatory TRAVEL OUTSIDE OF THE [place] IN LAST 30 DAYS: No - HPI Notes: Patient is a 48-year-old female with a history of fibroids who presents complaining of pressure in her pelvic area mainly on the right side that has been present and constant for the past 5 days. Patient believes that her ovary may be acting up she has had pain like this in the past. She has not had any vaginal bleeding, odor, or discharge. Patient states that her cycle ended last week just prior to the start of the pain. Patient states that she did have heavy bleeding during the last menstrual cycle and is usually irregular. She is able to eat and drink without difficulty. She is urinating normally and having normal bowel movements. No surgical history to her abdomen. Pain does not radiate. Denies any headache, fever, neck pain, URI, sore throat, chest pain, palpitations, syncope, cough, shortness of breath, wheeze, dyspnea, nausea/vomiting/diarrhea, urinary retention, dysuria, hematuria, back pain, or rash. - Related Data Allergies/Adverse Reactions: No Known Allergies Allergy (Verified 09/21/18 18:50) Past Medical History - General Information source: Patient - Social History Smoking Status: Current Every Day Smoker Frequency of alcohol use: None Drug Abuse: None Family History: Reviewed & Not Pertinent Patient has suicidal ideation: No Patient has homicidal ideation: No - Past Medical History Cardiac Medical History: Denies: Hx Congestive Heart Failure, Hx Heart Attack, Hx Hypertension Pulmonary Medical History: Denies: Hx Asthma, Hx Bronchitis, Hx COPD, Hx Pneumonia, Hx Tuberculosis Neurological Medical History: Denies: Hx Seizures, Hx Parkinson's Disease Renal/ Medical History: Denies: Hx End Stage Renal Disease, Hx Kidney Stones, Hx Peritoneal Dialysis GI Medical History: Denies: Hx Gastroesophageal Reflux Disease, Hx Ulcer Musculoskeletal Medical History: Denies Hx Arthritis, Denies Hx Gout Psychiatric Medical History: Denies: Hx Bipolar Disorder, Hx Depression, Hx Schizophrenia Past Surgical History: Reports: Hx Orthopedic Surgery - ganglion cyst removal - Immunizations Hx Diphtheria, Pertussis, Tetanus Vaccination: Yes Review of Systems - Review of Systems -: Yes All other systems reviewed and negative Physical Exam - Vital signs Vitals: Temp Pulse BP Pulse Ox 97.7 F 65 153/93 H 100 01/24/19 15:28 01/24/19 15:28 01/24/19 15:28 01/24/19 15:28 - Notes Notes: PHYSICAL EXAMINATION: GENERAL: Well-appearing, well-nourished and in no acute distress. HEAD: Atraumatic, normocephalic. EYES: Pupils equal round and reactive to light, extraocular movements intact, sclera anicteric, conjunctiva are normal. ENT: Nares patent and without discharge. oropharynx clear without exudates. No tonsilar hypertrophy or erythema. Moist mucous membranes. NECK: Normal range of motion, supple without lymphadenopathy LUNGS: Breath sounds clear to auscultation bilaterally and equal. No wheezes rales or rhonchi. HEART: Regular rate and rhythm without murmurs, rubs, gallops. ABDOMEN: Soft, nontender, nondistended abdomen. No guarding, no rebound. Normal bowel sounds present. No CVA tenderness bilaterally. Pt has no tenderness at [place] or to her lower pelvic area. Wagner neg. Female : No inguinal adenopathy. External genitalia without erythema, lesions, or masses. Vaginal mucosa pink with scant white discharge. Cervix parous, pink, and without discharge. Uterus is smooth. No adnexal tenderness. No CMT. witnessed by anabela. Musculoskeletal: FROM to passive/active. Strength 5+/5. Extremities: No cyanosis, clubbing, or edema b/l. Peripheral pulses 2+. Capillary refill less than 3 seconds. NEUROLOGICAL: Normal speech, normal gait. PSYCH: Normal mood, normal affect. SKIN: Warm, Dry, normal turgor, no rashes or lesions noted. Course - Re-evaluation Re-evalutation: 01/24/19 20:00 Patient is an afebrile, well-hydrated, 48-year-old female who presents to the ED with trich and BV. Vitals are acceptable without any significant tachycardia, tachypnea, or hypoxia. PE is otherwise unremarkable. Abd is soft and nontender throughout. CBC/CMP/UA unremarkable. See wet mount results. Chlam/gonorrhea tests are pending. Pt given zithromax/rocephin. No CMT. Patient is nontoxic-appearing is tolerating p.o. without any difficulties. Transvaginal ultrasound was also unremarkable for any acute pathology aside from known fibroid. No other labs or imaging warranted at this time based on H&P. Low suspicion/risk for acute appendicitis, bowel obstruction, acute cholecystitis, acute cholangitis, perforated diverticulitis, incarcerated hernia, pancreatitis, perforated ulcer, peritonitis, sepsis, pelvic inflammatory disease, ectopic , tubo-ovarian abscess, ovarian torsion, or other systemic emergent condition at this time. Patient is aware that her condition can change from initial presentation and she needs to monitor symptoms closely and seek medical attention if any acute changes. I will send her home with prescription for Flagyl. Conservative measures otherwise for symptoms. Recheck with your PCM/OBGYN in 3-5 days. Return to the ED with any worsening/concerning symptoms otherwise as reviewed in discharge. Patient is in agreement. - Vital Signs Vital signs: Temp Pulse Resp BP Pulse Ox 97.7 F 65 153/93 H 100 01/24/19 15:28 01/24/19 15:28 01/24/19 15:28 01/24/19 15:28 - Laboratory Result Diagrams: 01/24/19 16:08 01/24/19 16:08 Laboratory results interpreted by me: 01/24/19 01/24/19 16:08 16:08 RDW 15.7 H Plt Count 462 H Chloride 108 H Glucose 73 L Procedures - Pelvic Exam Pelvic exam Cultures obtained: Yes Wet prep obtained: Yes Bimanual exam performed: Yes - negative Witnessed by: Anabela Discharge - Discharge Clinical Impression: Trichomonas infection, Bacterial vaginosis, Pelvic pain Condition: Stable Disposition: HOME, SELF-CARE Instructions: Metronidazole ([facility]), Trichomonas Infection ([facility]) Additional Instructions: Maintain fluid intake Proper hygienic technique Keep the skin clean Safe sexual practices with condoms everytime Tylenol/ibuprofen as needed Check in with the health department this week for further testing if warranted Your chlamydia/gonorrhea tests are pending and you will be notified if positive results; you may call in 1 day for the results as well F/u with your PCM/OBGYN in 3-5 days for a recheck Return to the ED with any development of VELA/fever, trouble with vision, eye redness, worsening pain, urethral discharge, urinary retention, blood in the urine, flank pain, abdominal pain, n/v, Chest Pain, shortness of breath, joint pains, trouble breathing, or any other worsening/concerning symptoms as needed otherwise. Prescriptions: Metronidazole [Flagyl] 500 mg PO BID #14 tablet Forms: Elevated Blood Pressure, Smoking Cessation Education Referrals: [facility] [Provider Group] - [facility] - Follow up as needed
[2019-01-24 19:37] LABS: T.VAGINALIS (WET MOUNT) TRICHOMONAS SEEN; WBCS (WET MOUNT) 1+ WBCS SEEN; YEAST (WET MOUNT) NO YEAST SEEN
[2019-01-24 19:38] LABS: BACTERIA (WET MOUNT) 4+ BACTERIA SEEN; EPITHELIALS (WET MOUNT) 3+ EPITHELIALS SEEN; RBCS (WET MOUNT) RARE RBCS SEEN
--- NOTE | 2019-01-24 19:43 | RADIOLOGY REPORT (SQ) ---
EXAM DESCRIPTION: U/S NON OB PEL TV W/DOPPLER COMPLETED DATE/TIME: 01/24/2019 7:00 pm REASON FOR STUDY: pelvic pain hx fibroids COMPARISON: 08/05/2017 CT TECHNIQUE: Dynamic and static grayscale images acquired of the pelvis via transvaginal approach and recorded on PACS. Additional selected color Doppler and spectral images recorded. LIMITATIONS: None. FINDINGS: UTERUS: 4.7 cm left fundal fibroid. ENDOMETRIAL STRIPE: No focal or generalized thickening. No masses. CERVIX: No nabothian cysts. RIGHT OVARY AND DOPPLER: Ovary not visualized. LEFT OVARY AND DOPPLER: Ovary not visualized. FREE FLUID: None noted. OTHER: No other significant finding. MEASUREMENTS: UTERUS: 7.2 x 6.3 x 3.8 cm ENDOMETRIAL STRIPE: 5 mm RIGHT OVARY: Not visualized. LEFT OVARY: Not visualized. IMPRESSION: 4.7 cm left fundal fibroid. Nonvisualized ovaries. TECHNICAL DOCUMENTATION: JOB ID: [id number] 2010 [employer]- All Rights Reserved Rev Reading location - IP/workstation name: [email or web address]
[2019-01-24 20:23] VITALS: BP 146/83
[2019-01-24 20:58] LABS: CHLAM PCR NOT DETECTED (NOT DETECT)
== END 2019-01-24 20:14 | disposition home or self-care (01) ==
LOC: ER 15:10
DX: N76.0 Acute vaginitis (principal); B96.89 Other specified bacterial agents as the cause of diseases classified elsewhere; A59.9 Trichomoniasis, unspecified; R10.30 Lower abdominal pain, unspecified; F17.200 Nicotine dependence, unspecified, uncomplicated
CPT/HCPCS: 99284; 96372; 36415; 87210; 85025; 81025; 80053; 81001; 87491; 87591; 76830; 93976; J3490; J0696